=== PATIENT | female | born 1960 | race Caucasian/White ===

== ENCOUNTER 2018-05-15 07:17 | Emergency (ER) | payer OTHER ==
[~2018-05-15] VITALS: Ht 167.6 cm; Wt 68.0 kg
[2018-05-15] MEDS ORDERED: TOPROL XL25 M1 PO (07:26)
== END 2018-05-15 09:34 | disposition home or self-care (01) ==
LOC: ER 07:17
DX: B34.9 Viral infection, unspecified (principal)